=== PATIENT | male | born 2000 | race Caucasian/White ===

== ENCOUNTER 2020-06-27 18:35 | Emergency (ER) | payer SELFPAY ==
[~2020-06-27] VITALS: Ht 188 cm; Wt 73.0 kg
[2020-06-27 18:37] VITALS: BP 126/82
[2020-06-27] MEDS ORDERED: LIDOCAINE HCL/PF 1% 10 MG/ML 5ML VIAL IJ ONE (19:30)
[2020-06-27] MEDS ORDERED: AZITHROMYCIN 500 MG TABLET PO ONE (19:30)
[2020-06-27] MEDS ORDERED: CEFTRIAXONE SODIUM 250 MG/VIAL IM ONE (19:30)
[2020-06-27 19:55] LABS: CLARITY URINE CLEAR (CLEAR); COLOR URINE YELLOW (YELLOW); KETONES URINE NEGATIVE (NEGATIVE); LEUKOCYTE ESTERASE URINE NEGATIVE (NEGATIVE); NITRITE URINE NEGATIVE (NEGATIVE); OCCULT BLOOD URINE NEGATIVE (NEGATIVE); PH URINE 7.5 (4.5-8.0); PROTEIN URINE NEGATIVE (NEGATIVE); SPECIFIC GRAVITY URINE 1.028 (1.005-1.030)
== END 2020-06-27 20:49 | disposition home or self-care (01) ==
LOC: ER 18:35
DX: N50.812 Left testicular pain (principal); A64 Unspecified sexually transmitted disease; Z20.828 Contact with and (suspected) exposure to other viral communicable diseases
CPT/HCPCS: 76870; 81003; 87491; 87591; 93976; 96372; 99284; J0696

== ENCOUNTER 2021-05-17 14:13 | Emergency (ER) | payer SELFPAY ==
[~2021-05-17] VITALS: Ht 188 cm; Wt 74.0 kg
[2021-05-17] MEDS ORDERED: BACITRACIN ZINC OINT UDPKT TOP ONE ×2 (15:15→16:15)
[2021-05-17] MEDS ORDERED: TETANUS, DIPHTHERIA, PERTUSSIS VAC/PF 0.5ML (>10YR OLD) IM ONE (15:15)
[2021-05-17] MEDS ORDERED: ACETAMINOPHEN WITH CODEINE 300/30MG TABLET PO ONE (15:15)
[2021-05-17 15:23] VITALS: BP 106/61
[2021-05-17] MEDS ORDERED: BACITRACIN ZINC OINT UDPKT TOP NR (16:30)
[2021-05-17] MEDS ORDERED: BO1 TP (17:13)
== END 2021-05-17 17:21 | disposition home or self-care (01) ==
LOC: ER 14:42
DX: T22.211A Burn of second degree of right forearm, initial encounter (principal); T31.0 Burns involving less than 10% of body surface; X11.8XXA Contact with other hot tap-water, initial encounter; Y93.89 Activity, other specified; Y92.89 Other specified places as the place of occurrence of the external cause; Y99.8 Other external cause status
CPT/HCPCS: 90471; 90715; 99284